=== PATIENT | female | born 1975 | race Caucasian/White ===

== ENCOUNTER 2019-11-27 18:05 | Inpatient (IN) ==
[2019-11-27 18:55] LABS: Basophils % 0.4 % (0.0-0.8); Eosinophils # 0.2 10*3/uL (0.0-0.87); Eosinophils % 1.9 % (0.00-10.9); Hematocrit 29.1 VOL% (35.7-47.0); Hemoglobin 9.5 GM/DL (12.0-16.0); Immature Granulocytes % 1.2 %; Lymphocytes # 1.7 10*3/uL (1.4-4.0); Lymphocytes % 20.4 % (21.3-54.2); Mean Corpuscular HGB Conc 32.6 GM/DL (32-36); Mean Platelet Volume 11.3 FL (9.6-12.0); Monocytes % 6.2 % (1.7-12.7); Neutrophils % 69.9 % (38.7-73.9); Platelet Count 175 T/CUMM (130-400); Red Blood Count 3.13 MC/CUMM (3.8-5.5); Red Cell Distribution Width 13.8 % (9.3-17.3); White Blood Count 8.4 T/CUMM (4-12)
[2019-11-27] MEDS ORDERED: BETAMETH SODIUM PHOS/ACETATE 30 MG/5 ML VIAL IM SCH (19:00)
[2019-11-27 19:20] LABS: Alanine Aminotransferase 19 U/L (13-56); Albumin 2.4 G/DL (3.4-5.0); Alkaline Phosphatase 104 U/L (45-117); Aspartate Amino Transferase 16 U/L (0-37); Bilirubin,Total < 0.39 MG/DL (0.2-1.0); Blood Urea Nitrogen 8 MG/DL (7-18); Calcium 8.3 MG/DL (8.5-10.1); Estimated Glom Filtration Rate 126 ML/MIN; Glucose 68 MG/DL (74-106); Osmolality,Calculated 272.5 MOS/KG (273-304); Total Protein 6.3 G/DL (6.4-8.3)
[2019-11-28] MEDS ORDERED: CITRIC ACID/SODIUM CITRATE 30 ML UDCUP PO ONE ×2 (01:01→16:00)
[2019-11-28] MEDS ORDERED: FAMOTIDINE 20 MG/2 ML VIAL IV ONE ×2 (01:01→16:00)
[2019-11-28] MEDS ORDERED: ceFAZolin 2,000 MG in PREMIX 1 EACH IV ONE ×2 (01:01→16:00)
[2019-11-28] MEDS ORDERED: METHYLERGONOVINE 0.2 MG/1 ML AMP ONE (01:08)
[2019-11-28] MEDS ORDERED: OXYTOCIN/LR 20 UNIT/1,000 ML BAG IV ONE ×3 (01:08→02:44)
[2019-11-28] MEDS ORDERED: miSOPROStoL 200 MCG TABLET ONE (01:08)
[2019-11-28] MEDS ORDERED: TRANEXAMIC ACID 1,000 MG/10 ML VIAL ONE (01:08)
[2019-11-28] MEDS ORDERED: CARBOPROST TROMETHAMINE 250 MCG/ML AMP IM ONE (01:09)
[2019-11-28] MEDS ORDERED: ONDANSETRON 4 MG/2 ML VIAL ONE (01:21)
[2019-11-28] MEDS ORDERED: BUPIVACAINE SPINAL 0.75% 2 ML AMP SPINAL ONE (01:21)
[2019-11-28] MEDS ORDERED: MORPHINE 10 MG/10 ML VIAL ONE (01:21)
[2019-11-28] MEDS ORDERED: PHENYLEPHRINE 1 MG/10 ML SYRINGE IV ONE (01:21)
[2019-11-28] MEDS ORDERED: fentaNYL 100 MCG/2 ML VIAL ONE (01:21)
[2019-11-28] MEDS ORDERED: LACTATED RINGERS 1,000 ML IV SCH ×3 (01:30→08:00)
[2019-11-28 02:08] LABS: Bacteria,Urine Occasional /HPF (Few); Bilirubin,Urine Negative (Negative); Blood, Urine Small mg/dL (Negative); Glucose,Urine (UA) 50 mg/dL (Negative); Ketones,Urine Negative (Negative); Mucus,Urine Occasional /LPF (Occasional); Nitrite,Urine Negative (Negative); Protein,Urine Negative; RBC,Urine <1 /HPF (0-4); Squamous Epithelial Cell,Urine Occasional /HPF (0-10); Urine Appearance CLEAR (Clear); Urine Color Straw (Yellow); Urine Specific Gravity 1.008 (1.001-1.035); Urine Urobilinogen < 2.0 EU/DL (0.2-1.0)
[2019-11-28 02:19] LABS: Cord Arterial Blood HCO3 23.8 MMOL/L
[2019-11-28 02:21] LABS: Cord Venous Blood HCO3 22.2 MMOL/L
[2019-11-28] MEDS ORDERED: ONDANSETRON 4 MG/2 ML VIAL IV PRN (02:44)
[2019-11-28] MEDS ORDERED: RHO(D) IMMUNE GLOBULIN 300 MCG SYRINGE IM ONE (02:44)
[2019-11-28] MEDS ORDERED: ACETAMINOPHEN 325 MG TABLET PO PRN (02:44)
[2019-11-28] MEDS ORDERED: SIMETHICONE CHEW 80 MG TABLET PO PRN (02:44)
[2019-11-28] MEDS ORDERED: oxyCODONE/ACETAMINOPHEN 5-325 MG TABLET PO PRN (02:45)
[2019-11-28 05:25] LABS: Eosinophils % 0.2 % (0.00-10.9); Immature Granulocytes % 1.2 %; Immature Granulocytes Absolute 0.11 #; Lymphocytes # 0.6 10*3/uL (1.4-4.0); Lymphocytes % 6.9 % (21.3-54.2); Mean Corpuscular HGB Conc 29.7 GM/DL (32-36); Mean Platelet Volume 11.3 FL (9.6-12.0); Neutrophils % 87.7 % (38.7-73.9); Platelet Count 85 T/CUMM (130-400); Red Blood Count 1.52 MC/CUMM (3.8-5.5); Red Cell Distribution Width 13.8 % (9.3-17.3); White Blood Count 9.2 T/CUMM (4-12)
[2019-11-28 05:33] LABS: Hematocrit 15.5 VOL% (35.7-47.0); Hemoglobin 4.6 GM/DL (12.0-16.0)
[2019-11-28] MEDS ORDERED: SODIUM CHLORIDE 0.9% 1,000 ML IV PRN ×2 (05:47→05:57)
[2019-11-28 05:48] LABS: Platelet Estimate Decreased
[2019-11-28 05:50] LABS: Anisocytosis Slight; Spherocytes Few
[2019-11-28] MEDS: MULTIVITAMIN (PRENATAL) TABLET PO SCH (09:05)
[2019-11-28] MEDS: DOCUSATE SODIUM 100 MG CAPSULE PO SCH ×2 (09:05→21:34)
[2019-11-28] MEDS: MAGNESIUM HYDROXIDE SUSP 30 ML UDCUP PO PRN (09:05)
[2019-11-28] MEDS ORDERED: ACETAMINOPHEN/CODEINE 300-30 MG TABLET PO PRN ×2 (09:10)
[2019-11-28] MEDS ORDERED: SODIUM CHLORIDE 0.9% 100 ML IV ONE (12:13)
[2019-11-28] MEDS: ceFAZolin 1,000 MG in SYRINGE 1 EACH IV SCH ×2 (12:28→21:36)
[2019-11-28] MEDS: IBUPROFEN 800 MG TABLET PO PRN ×2 (13:26→22:26)
[2019-11-28 14:13] LABS: Hemoglobin 10.2 GM/DL (12.0-16.0)
[2019-11-28] MEDS: FERROUS SULFATE 325 MG TABLET PO SCH (21:34)
[2019-11-29] MEDS: IBUPROFEN 800 MG TABLET PO PRN ×2 (06:05→13:45)
[2019-11-29] MEDS: FERROUS SULFATE 325 MG TABLET PO SCH (09:10)
[2019-11-29] MEDS: MAGNESIUM HYDROXIDE SUSP 30 ML UDCUP PO PRN (09:10)
[2019-11-29] MEDS: MULTIVITAMIN (PRENATAL) TABLET PO SCH (09:10)
[2019-11-29] MEDS: DOCUSATE SODIUM 100 MG CAPSULE PO SCH (09:10)
[2019-11-29 11:37] VITALS: BP 132/76
== END 2019-11-29 15:20 | disposition home or self-care (01) | DRG 783 ==
LOC: N.LAB 18:05 → N.LD 18:07 → N.OB 11-28 05:30
PROVIDERS: ADMIT Obstetrics & Gynecology; ATTEND Obstetrics & Gynecology